=== PATIENT | male | born 1970 | race Caucasian/White ===

== ENCOUNTER → 2017-02-04 | Day surgery (SDC) | payer BC, OTHER ==
[2017-02-01 12:21] VITALS: BMI 48.0
--- NOTE | 2017-02-01 13:16 | PAT Medication Instructions ---
Service Date February 01, 2017. Current Home Medication List Albuterol (Proair Hfa), 2 PUFFS INH QID PRN for Shortness of Breath Aspirin (Aspirin), 325 MG PO QDL Furosemide (Lasix), 20 MG PO DAILY PRN for FLUID RETENTION Glyburide (Micronase), 10 MG PO QAM Lisinopril (Zestril), 10 MG PO LUNCH Lorazepam (Lorazepam), 1 TAB PO TID PRN for Anxiety Metformin Hcl (Glucophage), 1,000 MG PO BID Multiple Vitamin (Multivitamin), 1 TAB PO LUNCH Nateglinide (Starlix), 60 MG PO QAM Nateglinide (Starlix), 120 MG PO HS Potassium (Chelated Potassium), 95 MG PO DAILY Sertraline (Zoloft), 100 MG PO QAM Medication Instructions For Your Scheduled Surgery Aspirin (Aspirin), 325 MG PO QDL (patient self held starting 01/28/17) - Hold the following medications 48 hours prior to surgery: Metformin Hcl (Glucophage), 1,000 MG PO BID - Hold the following medications the morning of surgery: Multiple Vitamin (Multivitamin), 1 TAB PO LUNCH Lisinopril (Zestril), 10 MG PO LUNCH Glyburide (Micronase), 10 MG PO QAM Furosemide (Lasix), 20 MG PO DAILY PRN for FLUID RETENTION Nateglinide (Starlix), 60 MG PO QAM - Take the following medications the morning of surgery with a sip of water: Sertraline (Zoloft), 100 MG PO QAM Lorazepam (Lorazepam), 1 TAB PO TID PRN for Anxiety Albuterol (Proair Hfa), 2 PUFFS INH QID PRN for Shortness of Breath (takes rarely/can use morning of surgery if needed/bring with you to hospital on day of surgery) - Take the following medications as scheduled the night before surgery: Lorazepam (Lorazepam), 1 TAB PO TID PRN for Anxiety Nateglinide (Starlix), 120 MG PO HS If you have any questions please call us at [phone] or [phone] ( [place]) or [phone]
[~2017-02-04] VITALS: Ht 188 cm; Wt 168.2 kg
[~2017-02-04] MED LIST: ACETAMINOPHEN 1000 MG/100 ML IV IV ONE; ALBU18002 INH; ALBU1AER9 INH; ALBUTEROL HFA INHALER 8.5 GM INH ONE; ASPI325T4 PO; ATROPINE SULFATE 0.1 MG/ML 5ML SYR IV PRN; BUPIVACAINE 0.5 % 5 MG/1 ML MPF 30ML VIAL ONE; CEFAZOLIN 3000 MG/65 ML D5W IV SCH; CEFAZOLIN SOD 1 GM VIAL ONE; DEXAMETHASONE SOD INJ 4 MG/ML VIAL ONE; EpHEDrine SULFATE INJ 50 MG/ML AMP IV PRN; FENTANYL CITRATE INJ 50 MCG/1 ML 2 ML VIAL IV PRN; FENTANYL CITRATE INJ 50 MCG/1 ML 2 ML VIAL ONE; FURO20TA PO; GLYB5TAB8 PO; GLYCOPYRROLATE INJ 0.2 MG/ML VIAL ONE; HEPARIN SOD (PORCINE) 1000 UNIT/ML 10 ML VIAL ONE; HYDROmorphone INJ 1 MG/ML SYR IV PRN; HYDROmorphone INJ 2 MG/ML SYR/VIAL ONE; KETAMINE HCL INJ 50 MG/ML 10 ML VIAL ONE; LACTATED RINGER'S 1000ML 1,000 ML IV SCH; LIDOCAINE HCL 2% 2 ML VIAL (20MG/ML) ONE; LISI-461 PO; LORA0.5T12 PO; METF1000 PO; METO25TA3 PO; MIDAZOLAM HCL 1 MG/ML 2ML VIAL ONE; MULTTAB58 PO; MoRPHine SULFATE 4 MG/ML 1 ML CARP\\VIAL IV PRN; NATE1TAB PO; NATE60TA PO; NEOSTIGMINE METHYLSULFATE 5 MG/5 ML SYR ONE; ONDANSETRON INJ 2 MG/ML 2 ML VIAL IV PRN; ONDANSETRON INJ 2 MG/ML 2 ML VIAL ONE; OXYCODONE/ACETAMINOPHEN 5-325 TAB PO PRN; POTA1TAB61 PO; PRLSR20 PO; PROPOFOL IV EMULSION 10 MG/ML 20 ML VIAL IV ONE; ROCURONIUM BROMIDE 10 MG/ML 5 ML VIAL ONE; SERT-234 PO; SODIUM CHLORIDE 0.9% 1000ML 1,000 ML IV SCH; SULF-183 PO
[2017-02-04 11:54] VITALS: BP 132/76; PULSE 70; TEMP 36.6; O2SAT 95; Ht 188 cm; Wt 168.2 kg
--- NOTE | 2017-02-04 13:08 | History & Physical Bridge Note ---
H&P Re-Evaluation Bridge Note: I have examined the patient, reviewed the History & Physical and in the interval since the performance of the History & Physical I have noted the following changes of clinical significance: No changes noted
--- NOTE | 2017-02-04 15:47 | [facility] Post Operative Brief Note ---
Immediate Operative Summary Operative Date February 04, 2017. Pre-Operative Diagnosis Cholelithiasis, Gallbladder sludge, chronic cholecystitis Post-Operative Diagnosis Cholelithiasis, Gallbladder sludge, chronic cholecystitis Procedure(s) Performed Laparoscopic cholecystectomy Surgeon Dr. Marcos Kraus Appraiser [place] Surgeon(s) Nicci Benjamin PA-C Estimated Blood Loss 10 ML Findings See dictation Specimens A: Gallbladder Drains None Anesthesia General Complication(s) None Disposition Recovery Room / PACU
--- NOTE | 2017-02-04 15:51 | Discharge Instructions ---
Discharge Instructions Date of Service February 04, 2017. Admission Reason for Admission: Symptomatic Cholelithiasis Discharge Discharge Diagnosis / Problem: Same Discharge Goals Goal(s): Decrease discomfort Activity Recommendations Activity Limitations: per Instructions/Follow-up section Lifting Limitations: no more than 10 pounds ( 2 weeks) Shower/Bathe: tomorrow (Shower only) . Instructions / Follow-Up Instructions / Follow-Up Post-Surgical ~ Discharge Instructions Activity Recommendations: - lifting limitation: (10 pounds for 2 weeks), - exercise/sex/sports limit: (nonstrenuous for 2 weeks), - driving or machine use limit: (none for 1 week), - Shower/bathe limit: (may shower beginning tomorrow) Diet: - Resume previous diet SPECIAL CARE INSTRUCTIONS: - May shower in 24 hours. Let water run over area and pat dry. - Leave steri strips on for one week. - Call the surgeon's office with any questions or concerns - - (ex. temperature higher than 101 degrees F, excessive bleeding or pain). MEDICATIONS: - Resume previous medications unless instructed otherwise by your surgeon. - Ibuprofen 600 mg every 6 hours with food - Percocet 1 every 4 hours, as needed for pain FOLLOW UP VISIT: - If not already scheduled, please call the office to schedule a two week follow-up appointment. Office number Current Hospital Diet Patient's current hospital diet: Discharge Diet Recommended Diet: Regular Diet Procedures Procedures Performed: Laparoscopic cholecystectomy Pending Studies Studies pending at discharge: no Medical Emergencies . Who to Call and When: Medical Emergencies: If at any time you feel your situation is an emergency, please call 911 immediately. . Non-Emergent Contact Non-Emergency issues call your: Primary Care Provider, Surgeon Call Non-Emergent contact if: your pain is worsening, wound has increased redness, wound has increased pain . "Provider Documentation" section prepared by Marcos Kraus. . VTE Core Measure Inpt VTE Proph given/why not?: Treatment not indicated
[2017-02-04 16:48] VITALS: BP 125/69; PULSE 88; TEMP 36.4; O2SAT 94
--- NOTE | 2017-02-04 16:49 | Anesthesiology Progress Note ---
Anesthesia Post Op Note Date & Time February 04, 2017 at 16:49 Vital Signs Pain Intensity: 3 Vital Signs Past 12 Hours Date Time Temp Pulse Resp B/P Pulse Ox O2 Delivery O2 Flow Rate FiO2 02/04/17 16:31 70 15 02/04/17 16:31 74 15 95 02/04/17 16:30 127/64 02/04/17 16:28 36.3 65 16 127/64 95 Nasal Cannula 2 02/04/17 16:26 69 16 93 02/04/17 16:26 69 16 02/04/17 16:25 129/59 02/04/17 16:21 68 15 02/04/17 16:21 67 15 121/55 95 02/04/17 16:16 65 17 02/04/17 16:16 65 17 95 02/04/17 16:15 133/66 02/04/17 16:11 62 18 02/04/17 16:11 63 18 93 02/04/17 16:10 61 17 02/04/17 16:10 61 17 129/66 93 02/04/17 16:05 58 18 02/04/17 16:05 58 18 125/64 92 02/04/17 16:01 122/61 02/04/17 16:00 55 7 02/04/17 16:00 54 7 95 02/04/17 15:56 132/59 02/04/17 15:55 67 8 95 02/04/17 15:55 66 8 02/04/17 15:50 57 21 129/68 94 02/04/17 15:50 56 21 02/04/17 15:46 118/69 02/04/17 15:45 58 19 95 02/04/17 15:45 58 19 02/04/17 15:40 58 20 162/91 91 02/04/17 15:40 58 20 02/04/17 15:39 58 20 02/04/17 15:39 59 20 92 02/04/17 15:35 165/97 02/04/17 15:34 59 20 02/04/17 15:34 59 20 97 02/04/17 15:30 170/93 02/04/17 15:29 61 19 98 02/04/17 15:29 62 19 02/04/17 15:25 170/92 02/04/17 15:24 61 17 02/04/17 15:24 62 17 99 02/04/17 15:20 167/86 02/04/17 15:19 63 24 02/04/17 15:19 36.3 64 20 175/90 97 Mask 10 02/04/17 15:19 62 24 97 02/04/17 11:54 36.6 70 18 132/76 95 Room Air Notes Mental Status: alert / awake / arousable, participated in evaluation Pt Amnestic to Procedure: Yes Nausea / Vomiting: adequately controlled Pain: adequately controlled Airway Patency, RR, SpO2: stable & adequate BP & HR: stable & adequate Hydration State: stable & adequate Anesthetic Complications: no major complications apparent
[2017-02-04 17:20] VITALS: BP 143/75; PULSE 77; O2SAT 93
[2017-02-04 17:50] VITALS: BP 161/74; PULSE 68; TEMP 36.3; O2SAT 93
--- NOTE | 2017-02-05 03:33 | OPERATIVE REPORT ---
DATE OF OPERATION: 02/04/2017 PREOPERATIVE DIAGNOSES: Cholelithiasis, sludge in gallbladder, chronic cholecystitis. POSTOPERATIVE DIAGNOSES: Same. PROCEDURE: Laparoscopic cholecystectomy. SURGEON: Dr. Kraus. FRANCHISE BUSINESS CONSULTANT: Nicci Benjamin PA-C. FINDINGS: There were some omental adhesions to the anterior abdominal wall beneath where his previous umbilical hernia had been performed. There was no bowel adhesion. There were no adhesions to the abdominal wall in the right upper quadrant. He did have some adhesion of the omentum to the infundibulum portion of the gallbladder. The gallbladder was very elongated. The cystic duct was not dilated. The liver had a pale nutmeg color to it. It was not nodular. It was not enlarged. The visible bowel appeared normal. TECHNIQUE: The patient was given a general anesthetic and the area was prepped and draped in the usual sterile fashion. Transverse incision was made in the upper midline, just to the left. This was carried down through the subcutaneous tissue to the fascia which was incised. The peritoneum was identified, incised, and the introducer was placed bluntly. The abdomen was then insufflated to a pressure of 15 mmHg with carbon dioxide. The midclavicular introducer was then placed under direct vision, and using the scissors through that instrument, the adhesions to the anterior abdominal wall in the umbilicus area were taken down using sharp and cautery dissection where appropriate. Above the umbilicus and above where the mesh appeared to be, a transverse incision was made in the abdomen and the 11 mm introducer was placed through there. The camera was passed through that introducer and the midclavicular introducer was placed under direct vision. Traction was placed on the gallbladder, and the adhesions to the body and to the infundibulum were taken down using blunt cautery dissection where appropriate. The duodenum and colon were not adhesed. I was eventually able to identify the infundibulum and away from the liver and the adhesions on the lateral side. I then was able to peel the peritoneum down away from the infundibulum and then work up the lateral side, those attachments as well. I then worked over the anterior surface of the infundibulum into the triangle of Calot. There was some redundant fatty tissue that was divided using cautery and then I was able to separate the infundibulum away from the liver on the medial side and work up the medial side toward the body. I elevated the infundibulum and worked on the posterior side laterally and then worked from lateral to medial and was able to identify the cystic duct. Some of the fatty tissue on the medial side was taken down as well with some of the lymphatics, allowing me to visualize the medial wall and I was able to establish a plane posterior to that and identify its junction with the gallbladder. Three clips were placed on the proximal cystic duct, one near the junction with the gallbladder and it was divided. Further dissection was then carried out posteromedial to that where the cystic artery was identified. It was doubly clamped proximally, once near the gallbladder and divided. The gallbladder was then peeled off the liver bed very carefully. There was one other posterior branch of the artery that was clamped and divided. Once that was completed, the gallbladder was then peeled off the liver bed with ease and was placed into an Endobag and brought out through the upper midline incision. One of the graspers had created a hole in the gallbladder and there was some bile spillage, but I did not see any stone spill. The subdiaphragmatic and subhepatic spaces were then irrigated and irrigation was removed. The gallbladder bed of the liver was inspected. There was 1 small area of oozing that was easily controlled with cautery. Further irrigation was performed and the irrigation removed and that was repeated until the return was clear. The gallbladder bed of the liver was again inspected, especially the area that had been oozing and there was no further bleeding. The previously placed clips were intact. Gas was allowed to escape and the introducers were removed. The fascia of the upper midline and umbilical introducer site was closed with interrupted 0 Vicryl and the skin of all the incisions was closed with 4-0 Monocryl in either an interrupted or running subcuticular fashion. Skin was anesthetized with 0.5% Marcaine. The skin was cleansed, dried, benzoin placed, Steri-Strips applied. The estimated blood loss was 10 mL. Sponge, needle and instrument counts were correct prior to closure. The patient tolerated the surgical procedure without complication and was transferred to recovery. I attest to the content of the Intraoperative Record and any orders documented therein. Any exceptio ns are noted below.
== END | disposition home or self-care (01) ==
LOC: C.ACU 11:33
PROVIDERS: ATTEND Surgery
DX: K80.10 Calculus of gallbladder with chronic cholecystitis without obstruction (principal); I10 Essential (primary) hypertension; E78.5 Hyperlipidemia, unspecified; E11.9 Type 2 diabetes mellitus without complications; F41.1 Generalized anxiety disorder; H40.89 Other specified glaucoma; I87.2 Venous insufficiency (chronic) (peripheral); K21.9 Gastro-esophageal reflux disease without esophagitis; K42.9 Umbilical hernia without obstruction or gangrene; I83.90 Asymptomatic varicose veins of unspecified lower extremity; E66.01 Morbid (severe) obesity due to excess calories; F17.210 Nicotine dependence, cigarettes, uncomplicated; Z79.82 Long term (current) use of aspirin; Z79.899 Other long term (current) drug therapy

== ENCOUNTER 2017-07-28 15:21 | Emergency (ER) | payer OTHER ==
[~2017-07-28] VITALS: Ht 185.4 cm; Wt 144.0 kg
[~2017-07-28 15:21] MED LIST changes: -ACETAMINOPHEN 1000 MG/100 ML IV IV ONE; -ALBU18002 INH; -ALBUTEROL HFA INHALER 8.5 GM INH ONE; -ATROPINE SULFATE 0.1 MG/ML 5ML SYR IV PRN; -BUPIVACAINE 0.5 % 5 MG/1 ML MPF 30ML VIAL ONE; -CEFAZOLIN 3000 MG/65 ML D5W IV SCH; -CEFAZOLIN SOD 1 GM VIAL ONE; -DEXAMETHASONE SOD INJ 4 MG/ML VIAL ONE; -EpHEDrine SULFATE INJ 50 MG/ML AMP IV PRN; -FENTANYL CITRATE INJ 50 MCG/1 ML 2 ML VIAL IV PRN; -FENTANYL CITRATE INJ 50 MCG/1 ML 2 ML VIAL ONE; -GLYCOPYRROLATE INJ 0.2 MG/ML VIAL ONE; -HEPARIN SOD (PORCINE) 1000 UNIT/ML 10 ML VIAL ONE; -HYDROmorphone INJ 1 MG/ML SYR IV PRN; -HYDROmorphone INJ 2 MG/ML SYR/VIAL ONE; -KETAMINE HCL INJ 50 MG/ML 10 ML VIAL ONE; -LACTATED RINGER'S 1000ML 1,000 ML IV SCH; -LIDOCAINE HCL 2% 2 ML VIAL (20MG/ML) ONE; -METO25TA3 PO; -MIDAZOLAM HCL 1 MG/ML 2ML VIAL ONE; -MoRPHine SULFATE 4 MG/ML 1 ML CARP\\VIAL IV PRN; -NEOSTIGMINE METHYLSULFATE 5 MG/5 ML SYR ONE; -ONDANSETRON INJ 2 MG/ML 2 ML VIAL IV PRN; -ONDANSETRON INJ 2 MG/ML 2 ML VIAL ONE; -OXYCODONE/ACETAMINOPHEN 5-325 TAB PO PRN; -PRLSR20 PO; -PROPOFOL IV EMULSION 10 MG/ML 20 ML VIAL IV ONE; -ROCURONIUM BROMIDE 10 MG/ML 5 ML VIAL ONE; -SODIUM CHLORIDE 0.9% 1000ML 1,000 ML IV SCH; -SULF-183 PO
[2017-07-28 15:36] VITALS: TEMP 36.5; Ht 185.4 cm; Wt 144.0 kg
[2017-07-28 16:48] VITALS: O2SAT 98
[2017-07-28 16:59] LABS: BASO % 0.2 %; BASO ABS # 0.01 K/uL (0-0.2); COMPLETE YES; EOS % 1.9 %; IG% 0.5 %; LYMPH % 27.1 %; LYMPH ABS # 1.74 K/uL (1.2-3.4); MEAN CELL VOLUME 83.3 fL (80-100); MEAN CORPUSCULAR HEMOGLOBIN 28.5 pg (25-34); MEAN CORPUSCULAR HGB CONC 34.3 g/dl (32-36); MEAN PLATELET VOLUME 9.8 fL (7.4-10.4); NEUT % 63.3 %; PLATELET COUNT 159 K/uL (130-400); WHITE BLOOD COUNT 6.43 K/uL (4.8-10.8)
[2017-07-28 17:23] LABS: ALT/SGPT 92 U/L (12-78); BLOOD UREA NITROGEN 14 mg/dl (7-18); BUN/CREATININE RATIO 14.1 (10-20); CALCIUM 9.1 mg/dl (8.5-10.1); CARBON DIOXIDE 25 mmol/L (21-32); CHLORIDE 100 mmol/L (98-107); CREATININE 0.97 mg/dl (0.60-1.40); GLUCOSE 165 mg/dl (70-99); MAGNESIUM 1.8 mg/dl (1.8-2.4); SODIUM 133 mmol/L (136-145)
[2017-07-28 17:34] LABS: ALB/GLOB RATIO 1.2 (0.9-2); ALKALINE PHOSPHATASE 92 U/L (45-117); AST/SGOT 89 U/L (15-37); CKMB/CK RATIO 2.9 (0-3.0)
[2017-07-28 17:36] LABS: URINE APPEARANCE CLEAR (CLEAR); URINE BILIRUBIN NEG (NEG); URINE COLOR YELLOW; URINE NITRITE NEG (NEG); UROBILINOGEN NEG (NEG); ZZUR CULT IF INDIC CLEAN CATCH NO
[2017-07-28 17:37] LABS: MANUAL MICROSCOPIC REQUIRED? NO; REVIEW REQ? NO
[2017-07-28 17:59] LABS: LYME DISEASE AB IGG NEG (NEG); LYME DISEASE AB IGM NEG (NEG)
--- NOTE | 2017-07-28 18:23 | EMERGENCY ROOM VISIT NOTE ---
History First contact with patient: 16:01 Chief Complaint: ARM PAIN Stated Complaint: SEVERE CRAMPING IN ARMS, FINGER, LEGS, DIZZY History of Present Illness The patient is a 47 year old male who presents to the Emergency Room via private vehicle with complaints of "severe cramping in arms, fingers, legs, dizzy". The patient states that Wednesday he began with diffuse cramping in the legs and arms. He states that he is urinated january times Wednesday, and continues to urinate many times are up-to-date. Wednesday he was put on Bactrim for suspected prostatitis this was by the family doctor. He states that today he feels as though his fingers or cramping in his legs are cramping. He was also seen by orthopedics today for his left shoulder. He denies any chest pain, but no shortness of breath over the past few weeks. Review of Systems A complete 10-point Review of Systems was discussed with the patient, with pertinent positives and negatives listed in the History of Present Illness. All remaining Review of Systems questions can be considered negative unless otherwise specified. Past Medical/Surgical History Medical Problems: (1) DM (diabetes mellitus) Family History No pertinent. Social History Smoking Status: Former Smoker Alcohol Use: occasionally Drug Use: none Marital Status: Housing Status: lives with family Occupation Status: employed Current/Historical Medications Scheduled Aspirin (Aspirin), 325 MG PO QDL Glyburide (Micronase), 10 MG PO QAM Lisinopril (Zestril), 10 MG PO LUNCH Metformin Hcl (Glucophage), 1,000 MG PO BID Multiple Vitamin (Multivitamin), 1 TAB PO LUNCH Nateglinide (Starlix), 60 MG PO QAM Nateglinide (Starlix), 120 MG PO HS Sertraline (Zoloft), 100 MG PO AFTERNOON Sulfamethoxazole-Trimethoprim (Smz-Tmp Ds), 1 TAB PO BID Scheduled PRN Albuterol Sulfate (Proair Respiclick), 2 PUFFS INH QID PRN for Shortness of Breath Furosemide (Lasix), 20 MG PO DAILY PRN for FLUID RETENTION Potassium (Chelated Potassium), 95 MG PO DAILY PRN for WITH LASIX Physical Exam Vital Signs Date Time Temp Pulse Resp B/P (MAP) Pulse Ox O2 Delivery O2 Flow Rate FiO2 07/28/17 18:40 76 20 124/68 99 07/28/17 18:06 68 20 129/68 99 Room Air 07/28/17 16:48 98 Room Air 07/28/17 15:36 36.5 74 20 150/82 97 Room Air Physical Exam VITAL SIGNS - Vital signs and nursing notes were reviewed. Stable. GENERAL -47-year-old male appearing his stated age who is in no acute distress. Communicates well with provider and answers questions appropriately. SKIN - Without rashes. No petechial rashes. There are darkened skin pigmentation overlying the medial aspects of the distal tib-fib evident of chronic poor blood flow. HEAD - NC/AT. EYES - Sclera anicteric. EARS - No deformities of external structures noted on gross examination bilaterally. NOSE - Midline and without cyanosis. No epistaxis or purulent drainage noted. MOUTH/OROPHARYNX - Without perioral cyanosis. LUNGS - Chest wall symmetric without accessory muscle use, intercostals retractions, or central cyanosis. Normal vesicular breath sounds CTA B/L. No wheezes, rales, or rhonchi appreciated. CARDIAC - RRR with S1/S2. No murmur, rubs, or gallops appreciated. EXTREMITIES - No clubbing or peripheral cyanosis. No pretibial edema present. +5 /5 strength noted in UE/LE bilaterally. Swelling noted the lower extremities bilaterally, no unilateral swelling or erythema. NEUROLOGIC - Cranial nerves II through XII grossly intact. Sensory intact to light touch throughout. Medical Decision & Procedures Laboratory Results 07/28/17 16:40 Red Blood Count 4.80, Mean Corpuscular Volume 83.3, Mean Corpuscular Hemoglobin 28.5, Mean Corpuscular Hemoglobin Concent 34.3, Mean Platelet Volume 9.8, Neutrophils (%) (Auto) 63.3, Lymphocytes (%) (Auto) 27.1, Monocytes (%) (Auto) 7.0, Eosinophils (%) (Auto) 1.9, Basophils (%) (Auto) 0.2, Neutrophils # (Auto) 4.08, Lymphocytes # (Auto) 1.74, Monocytes # (Auto) 0.45, Eosinophils # (Auto) 0.12, Basophils # (Auto) 0.01 07/28/17 16:40 Test 07/28/17 16:40 07/28/17 16:56 White Blood Count 6.43 K/uL (4.8-10.8) Red Blood Count 4.80 M/uL (4.7-6.1) Hemoglobin 13.7 g/dL (14.0-18.0) Hematocrit 40.0 % (42-52) Mean Corpuscular Volume 83.3 fL (80-100) Mean Corpuscular Hemoglobin 28.5 pg (25-34) Mean Corpuscular Hemoglobin Concent 34.3 g/dl (32-36) Platelet Count 159 K/uL (130-400) Mean Platelet Volume 9.8 fL (7.4-10.4) Neutrophils (%) (Auto) 63.3 % Lymphocytes (%) (Auto) 27.1 % Monocytes (%) (Auto) 7.0 % Eosinophils (%) (Auto) 1.9 % Basophils (%) (Auto) 0.2 % Neutrophils # (Auto) 4.08 K/uL (1.4-6.5) Lymphocytes # (Auto) 1.74 K/uL (1.2-3.4) Monocytes # (Auto) 0.45 K/uL (0.11-0.59) Eosinophils # (Auto) 0.12 K/uL (0-0.5) Basophils # (Auto) 0.01 K/uL (0-0.2) RDW Standard Deviation 39.1 fL (36.4-46.3) RDW Coefficient of Variation 12.9 % (11.5-14.5) Immature Granulocyte % (Auto) 0.5 % Immature Granulocyte # (Auto) 0.03 K/uL (0.00-0.02) Anion Gap 8.0 mmol/L (3-11) Est Creatinine Clear Calc Drug Dose 139.0 ml/min Estimated GFR () 106.6 Estimated GFR (Non- 91.9 BUN/Creatinine Ratio 14.1 (10-20) Calcium Level 9.1 mg/dl (8.5-10.1) Magnesium Level 1.8 mg/dl (1.8-2.4) Total Bilirubin 0.4 mg/dl (0.2-1) Aspartate Amino Transf (AST/SGOT) 89 U/L (15-37) Alanine Aminotransferase (ALT/SGPT) 92 U/L (12-78) Alkaline Phosphatase 92 U/L (45-117) Total Creatine Kinase 163 U/L (39-308) Creatine Kinase MB 4.7 ng/ml (0.5-3.6) Creatine Kinase MB Ratio 2.9 (0-3.0) Troponin I < 0.015 ng/ml (0-0.045) Total Protein 7.3 gm/dl (6.4-8.2) Albumin 3.9 gm/dl (3.4-5.0) Globulin 3.4 gm/dl (2.5-4.0) Albumin/Globulin Ratio 1.2 (0.9-2) Thyroid Stimulating Hormone (TSH) 3.550 uIu/ml (0.300-4.500) Lyme Disease IgG Antibody NEG (NEG) Lyme Disease IgM Antibody NEG (NEG) Urine Color YELLOW Urine Appearance CLEAR (CLEAR) Urine pH 6.0 (4.5-7.5) Urine Specific Alexander 1.010 (1.000-1.030) Urine Protein NEG (NEG) Urine Glucose (UA) NEG (NEG) Urine Ketones NEG (NEG) Urine Occult Blood NEG (NEG) Urine Nitrite NEG (NEG) Urine Bilirubin NEG (NEG) Urine Urobilinogen NEG (NEG) Urine Leukocyte Esterase NEG (NEG) Medical Decision Patient was seen and evaluated as above. Today he presents with cramping of the legs and hands. He also has polyuria. He has diabetes type 2. He was already seen today by his orthopedic doctor for the left shoulder. At this time he appears nontoxic. I do not believe that any imaging is warranted. No evidence of DVT. I do not suspect PE or NV. Blood work reveals no concerning leukocytosis. Anemia with hemoglobin of 13.7 noted. Metabolic panel reveals sodium low at 133, glucose at 165, no evidence of kidney or liver function. CK- MB was elevated at 4.7. AST and ALT were elevated and he was informed upon these findings. TSH normal. Urine negative. Lyme negative. I suspect no emergent or surgical nature to his symptoms at this time. He appears stable for outpatient management. Case was discussed with the attending physician. He was educated upon management, educated upon worrisome symptoms in which to return, had questions answered prior to discharge, and was discharged home in good condition. EKG is sinus rhythm. No significant change compared to previous. In evaluation treatment this patient following differential diagnoses were entertained: Electrolyte abnormality, rhabdomyolysis, DKA, hyperglycemia, myocardial infarction, PE, DVT, among others. Impression Primary Impression: Leg cramping Additional Impressions: Anemia Elevated CK-MB level Liver function test abnormality Departure Information Dispostion Home / Self-Care Condition GOOD Referrals Juan A Pérez M.D.(DARRYN) (PCP) Patient Instructions My [facility] Additional Instructions You have been treated in the Emergency Department your cramping. Laboratory results and imaging studies have ruled out any emergent causes for your symptoms which would warrant admission or surgery. Drink plenty of water and stay well hydrated. As with any trip to the Emergency Department, you should follow-up with your Primary Care Provider from today's visit. Please follow-up for the elevated liver tests, your symptoms today as well as the elevated CK-MB. Return to the emergency department if your symptoms persist despite treatment plan outlined above or if the following symptoms occur: increased fevers, chills , worsening nausea/vomiting, blood in your stool or urine. Problem Qualifiers
[2017-07-28] MEDS ORDERED: ALBU18002 INH (18:25)
[2017-07-28] MEDS ORDERED: SULF-183 PO (18:25)
[2017-07-28 18:40] VITALS: BP 124/68; PULSE 76; O2SAT 99
== END 2017-07-28 18:42 | disposition home or self-care (01) ==
LOC: C.EDB 15:24 → C.EDA 18:42
DX: G47.62 Sleep related leg cramps (principal); D64.9 Anemia, unspecified; R74.8 Abnormal levels of other serum enzymes; R94.5 Abnormal results of liver function studies; E11.9 Type 2 diabetes mellitus without complications; Z87.891 Personal history of nicotine dependence; Z79.82 Long term (current) use of aspirin